=== PATIENT | female | born 1990 | race Two or more races ===

== ENCOUNTER 2016-09-16 00:16 | Observation (INO) | payer OTHER ==
[2016-06-20 04:30] VITALS: BP 130/70
[2016-09-16 00:59] LABS: BILIRUBIN,URINE NEGATIVE (NEG); GLUCOSE,URINE NEGATIVE (NEG); NITRITE,URINE NEGATIVE (NEG); PROTEIN,URINE NEGATIVE (NEG-TRACE)
[2016-09-16 01:03] LABS: BACTERIA,URINE MODERATE /HPF (0-FEW); RBC,URINE 0 /HPF (0-2)
[2016-09-16 01:04] LABS: SQUAMOUS EPITHELIAL CELL,UR MOD /LPF
== END 2016-09-16 04:50 | disposition home or self-care (01) ==
LOC: 3 SO LND 00:16
PROVIDERS: ADMIT Obstetrics & Gynecology; ATTEND Obstetrics & Gynecology
DX: O62.9 Abnormality of forces of labor, unspecified (principal); Z3A.37 37 weeks gestation of pregnancy
CPT/HCPCS: 81001; 87086; G0378; G0379

== ENCOUNTER 2021-09-14 01:27 | Emergency (ER) | payer OTHER ==
[~2021-09-14] VITALS: Ht 165.1 cm; Wt 130.5 kg
[~2021-09-14 01:27] MED LIST: DOCU-109 PO; IBUP-1060 PO; OXYC1TAB15 PO
[2021-09-14 01:40] VITALS: BP 160/85
--- NOTE | 2021-09-14 02:25 | ED.ADGEN ---
Past Medical History Past Medical History: High Cholesterol, Other Additional Past Medical Histor: PRE- DIABETES Past Surgical History: Smoking Status: Never Smoker Alcohol Use: None Drug Use: None General Adult EDM: Chief Complaint: ABDOMINAL PAIN IN HPI: HPI: Patient is a 31 year old G4, P3 about 10 weeks gestational age by LMP of 06-24-2021 female coming in for left lower abdominal pain. Patient states the pain is cramping but does not radiate. Started around 5 hours prior to arrival. Denies any vaginal bleeding or discharge. Patient states that she has had a Doppler done when but had difficult time finding a heart beats, has not had an ultrasound with this . Denies any problems with previous pregnancies. Denies any change in bowel movements. States she does have a history of previous ovarian cyst. Per chart review patient is a positive blood type Review of Systems: Review of Systems: All other systems within normal limits except for as noted in the HPI Current Medications: Current Medications Medications (Trade) Dose Ordered Sig/Sergo Start Time Stop Time Status Last Admin Dose Admin Acetaminophen (Tylenol) 1,000 mg 1X ONCE 09/14/21 02:15 09/14/21 02:21 DC 09/14/21 02:41 1,000 MG Allergies: Allergies: Allergies Coded Allergies Type Severity Reaction Last Updated Verified No Known Drug Allergies 06/03/15 No Physical Exam: PE: Constitutional: Well developed, well nourished, no acute distress, non-toxic appearance. [] HENT: Normocephalic, atraumatic, bilateral external ears normal, nose normal. [] Eyes: PERRLA, conjunctiva normal, no discharge. [] Neck: No rigidity, supple, no stridor. [] Cardiovascular: Regular rate and rhythm, brisk cap refill [] Lungs & Thorax: Non labored symmetric respirations, no tachypnea or respiratory distress [] Abdomen: Soft, nondistended. Skin: Warm, dry, no erythema, no rash. [] Back: Unremarkable Extremities: No deformities, range of motion grossly intact, no lower extremity edema [] Neurologic: Alert and oriented X 3, no focal deficits noted. [] Psychologic: Affect normal, judgement normal, mood normal. [] Current Patient Data: Labs: Laboratory Tests Test 09/14/21 01:42 09/14/21 01:43 09/14/21 02:40 Urine Collection Type Unknown Urine Color Yellow Urine Clarity Clear Urine pH 6.0 (<5.0-8.0) Urine Specific Faison 1.020 (1.000-1.030) Urine Protein 100 mg/dL (NEG-TRACE) Urine Glucose (UA) Negative mg/dL (NEG) Urine Ketones (Stick) Negative mg/dL (NEG) Urine Blood Moderate (NEG) Urine Nitrite Positive (NEG) Urine Bilirubin Negative (NEG) Urine Urobilinogen Dipstick 0.2 mg/dL (0.2 mg/dL) Urine Leukocyte Esterase Moderate (NEG) Urine RBC 20-40 /HPF (0-2) Urine WBC Tntc /HPF (0-4) Urine Squamous Epithelial Cells Mod /LPF Urine Bacteria Many /HPF (0-FEW) Urine Mucus Mod /LPF POC Urine HCG, Qualitative Hcg positive (Negative) White Blood Count 10.8 x10^3/uL (4.0-11.0) Red Blood Count 3.77 x10^6/uL (3.50-5.40) Hemoglobin 12.3 g/dL (12.0-15.5) Hematocrit 34.7 % (36.0-47.0) L Mean Corpuscular Volume 92 fL (79-100) Mean Corpuscular Hemoglobin 33 pg (25-35) Mean Corpuscular Hemoglobin Concent 35 g/dL (31-37) Red Cell Distribution Width 13.4 % (11.5-14.5) Platelet Count 318 x10^3/uL (140-400) Neutrophils (%) (Auto) 70 % (31-73) Lymphocytes (%) (Auto) 22 % (24-48) L Monocytes (%) (Auto) 7 % (0-9) Eosinophils (%) (Auto) 1 % (0-3) Basophils (%) (Auto) 0 % (0-3) Neutrophils # (Auto) 7.5 x10^3/uL (1.8-7.7) Lymphocytes # (Auto) 2.4 x10^3/uL (1.0-4.8) Monocytes # (Auto) 0.7 x10^3/uL (0.0-1.1) Eosinophils # (Auto) 0.1 x10^3/uL (0.0-0.7) Basophils # (Auto) 0.0 x10^3/uL (0.0-0.2) Maternal Serum HCG Beta Subunit 24942 mIU/mL (0-5) H Sodium Level 134 mmol/L (136-145) L Potassium Level 3.3 mmol/L (3.5-5.1) L Chloride Level 102 mmol/L (98-107) Carbon Dioxide Level 26 mmol/L (21-32) Anion Gap 6 (6-14) Blood Urea Nitrogen 8 mg/dL (7-20) Creatinine 0.7 mg/dL (0.6-1.0) Estimated GFR (Cockcroft-Gault) 96.4 BUN/Creatinine Ratio 11 (6-20) Glucose Level 108 mg/dL (70-99) H Calcium Level 8.6 mg/dL (8.5-10.1) Total Bilirubin 0.3 mg/dL (0.2-1.0) Aspartate Amino Transferase (AST) 14 U/L (15-37) L Alanine Aminotransferase (ALT) 22 U/L (14-59) Alkaline Phosphatase 75 U/L (46-116) Total Protein 7.7 g/dL (6.4-8.2) Albumin 3.0 g/dL (3.4-5.0) L Albumin/Globulin Ratio 0.6 (1.0-1.7) L Laboratory Tests 09/14/21 02:40 Laboratory Tests 09/14/21 02:40 Microbiology 09/14/21 Wet Prep - Final, Complete Vital Signs: Vital Signs Date Time Temp Pulse Resp B/P (MAP) Pulse Ox O2 Delivery O2 Flow Rate FiO2 09/14/21 01:40 98.3 56 16 160/85 (110) 100 Room Air 98.3 EKG: EKG: [] Heart Score: C/O Chest Pain: No Risk Factors: Risk Factors: DM, Current or recent (<one month) smoker, HTN, HLP, family history of CAD, obesity. Risk Scores: Score 0 - 3: 2.5% MACE over next 6 weeks - Discharge Home Score 4 - 6: 20.3% MACE over next 6 weeks - Admit for Clinical Observation Score 7 - 10: 72.7% MACE over next 6 weeks - Early Invasive Strategies Radiology/Procedures: Radiology/Procedures: RUN DATE: 09/14/21 [facility] *LIVE* PAGE 1 RUN TIME: 304 Specimen Inquiry PATIENT: MARIANGEL FRANKEL ACCT: [id number] LOC: [facility] U: [id number] AGE/SX: 31/F ROOM: RE09/14/[address]: FRANSISCO GLEASON MD : 1990 BED: DIS: STATUS: REG [place] TLOC: SPEC #: [id number] RHODA: 09/14/21 STATUS: COMP REQ #: [id number] RECD: 09/14/[address]: FRANSISCO GLEASON MD SOURCE: VAGINAL ENTR: 09/14/21 SUZY HENRIQUEZ[facility]: W[facility] PREP COMMENTS: Has specimen been collected/obtained? Y Procedure Result WET PREP Final YEAST NONE SEEN TRICHOMONAS NONE SEEN CLUE CELLS NONE SEEN SQUAMOUS EPS MANY [] RUN DATE: 09/14/21 [facility] *LIVE* PAGE 1 RUN TIME: 0305 Specimen Inquiry PATIENT: JOSE M FRANKELSOL ACCT: [id number] LOC: [place] U: [id number] AGE/SX: 31/F ROOM: RE09/14/[address]: FRANSISCO GLEASON MD: 1990 BED: DIS: STATUS: REG ER TLOC: SPEC #: [id number] RHODA: 09/14/21 STATUS: COMP REQ #: [id number] RECD: 09/14/21 [facility] DR: FRANSISCO GLEASON MD SOURCE: VAGINAL ENTR: 09/14/[address]: JULISSA GEORGES SPDESC: ORDERED: WET PREP COMMENTS: Has specimen been collected/obtained? Y -- Procedure Result WET PREP Final YEAST NONE SEEN TRICHOMONAS NONE SEEN CLUE CELLS NONE SEEN SQUAMOUS EPS MANY Course & Med Decision Making: Course & Med Decision Making Pertinent Labs and Imaging studies reviewed. (See chart for details) [] Dragon Disclaimer: Dragon Disclaimer: This electronic medical record was generated, in whole or in part, using a voice recognition dictation system. Departure Departure Impression: Primary Impression: Urinary tract infection Disposition: HOME / SELF CARE / HOMELESS Condition: STABLE Referrals: NO PCP (PCP) Patient Instructions: Urinary Tract Infection Scripts Cephalexin (CEPHALEXIN) 500 Mg Tablet 1 TAB PO BID for antibiotic for 5 Days, #10 TAB Prov: FRANSISCO GLEASON MD 09/14/21 FRANSISCO GLEASON MD Sep 14, 2021 02:25
[2021-09-14 02:28] LABS: BILIRUBIN,URINE NEGATIVE (NEG); CLARITY,URINE CLEAR; COLOR,URINE YELLOW; NITRITE,URINE POSITIVE (NEG); PROTEIN,URINE 100 mg/dL (NEG-TRACE); UROBILINOGEN,URINE 0.2 mg/dL (0.2 mg/dL)
[2021-09-14 02:33] LABS: BACTERIA,URINE MANY /HPF (0-FEW); RBC,URINE 20-40 /HPF (0-2); WBC,URINE TNTC /HPF (0-4)
[2021-09-14] MEDS: ACETAMINOPHEN 500 MG TABLET PO ONE (02:41)
[2021-09-14 02:47] LABS: BASO % 0 % (0-3); EOS # 0.1 x10^3/uL (0.0-0.7); EOS % 1 % (0-3); HEMATOCRIT 34.7 % (36.0-47.0); HEMOGLOBIN 12.3 g/dL (12.0-15.5); LYMPH # 2.4 x10^3/uL (1.0-4.8); LYMPH % 22 % (24-48); MEAN CORPUSCULAR HEMOGLOBIN 33 pg (25-35); MEAN CORPUSCULAR HGB CONC 35 g/dL (31-37); MEAN CORPUSCULAR VOLUME 92 fL (79-100); MONO # 0.7 x10^3/uL (0.0-1.1); MONO % 7 % (0-9); NEUT # 7.5 x10^3/uL (1.8-7.7); NEUT % 70 % (31-73); PLATELET COUNT 318 x10^3/uL (140-400); RED BLOOD COUNT 3.77 x10^6/uL (3.50-5.40); RED CELL DISTRIBUTION WIDTH 13.4 % (11.5-14.5); WHITE BLOOD COUNT 10.8 x10^3/uL (4.0-11.0)
[2021-09-14 02:59] LABS: CALCIUM 8.6 mg/dL (8.5-10.1); CREATININE 0.7 mg/dL (0.6-1.0); GFR 96.4; POTASSIUM 3.3 mmol/L (3.5-5.1)
[2021-09-14 03:05] LABS: ALBUMIN/GLOBULIN RATIO 0.6 (1.0-1.7); TOTAL BILIRUBIN 0.3 mg/dL (0.2-1.0); TOTAL PROTEIN 7.7 g/dL (6.4-8.2)
--- NOTE | 2021-09-14 04:03 | RAD ---
US OB <14 WKS +TV History: Reason: LLQ pain, 10 wga / Spl. Instructions: / History: Comparison: None. Technique: Grayscale and color Doppler imaging of the pelvis was performed using transvaginally techn [employer]. Findings: The uterus measures 12 x 7.1 x 5.7 cm. Single intrauterine gestational sac with regular appearance. Yolk sac is not identified. pole i s identified with crown-rump length 3.99 cm. Estimated gestational age by ultrasound 10 weeks 6 days. heart rate 175 bpm. No perigestational fluid collections. Estimated date of delivery April 06, 2022 Bilateral maternal ovaries not well seen IMPRESSION: 1. Single intrauterine with gestational age 10 weeks 6 days and heart rate 175 bpm. Recommend routine anatomic screening at 18-22 weeks. Electronically signed by: Vicente Umana DO (09/14/2021 4:01 AM) [email or web address]
[2021-09-14] MEDS ORDERED: CEPH500T PO (04:25)
[2021-09-14] MEDS: CEPHALEXIN 250 MG CAPSULE. PO STA (04:26)
[2021-09-15 19:25] LABS: GC PROBE Negative (Negative)
== END 2021-09-14 04:53 | disposition home or self-care (01) ==
LOC: ER 01:27
DX: O23.41 Unspecified infection of urinary tract in pregnancy, first trimester (principal); N39.0 Urinary tract infection, site not specified; E78.00 Pure hypercholesterolemia, unspecified; Z3A.10 10 weeks gestation of pregnancy
CPT/HCPCS: 76801; 76817; 80053; 81001; 81025; 84702; 85025; 87077; 87086; 87186; 87491; 87591; 99284; Q0111

== ENCOUNTER 2021-10-21 19:35 | Emergency (ER) | payer OTHER ==
[~2021-10-21] VITALS: Ht 167.6 cm; Wt 128.0 kg
[~2021-10-21 19:35] MED LIST changes: +CEPH500T PO
[2021-10-21 21:38] LABS: BILIRUBIN,URINE NEGATIVE (NEG); CLARITY,URINE CLOUDY; COLOR,URINE YELLOW; NITRITE,URINE NEGATIVE (NEG); PROTEIN,URINE 100 mg/dL (NEG-TRACE); UROBILINOGEN,URINE 0.2 mg/dL (0.2 mg/dL)
--- NOTE | 2021-10-21 21:39 | PHYS DOC ---
Past Medical History Past Medical History: High Cholesterol, Other Additional Past Medical Histor: PRE- DIABETES Past Surgical History: Smoking Status: Never Smoker Alcohol Use: None Drug Use: None General Adult EDM: Chief Complaint: ABDOMINAL PAIN IN HPI: HPI: Patient is a 31 year old -0-0-3 female who is approximately 17 weeks by LMP (06/24/2021) who presents with lower abdominal cramping. States that it started approximately 3 PM today. Originates in the midline just above the pelvis and radiates up towards the umbilicus. Does not come in waves. Does not feel similar to contractions. No associated vaginal bleeding or disch arge. She has not had any fevers or chills. No upper abdominal pain. No nausea or vomiting. Has been having normal bowel movements, approximately 3/day. No blood in the stool. All 3 previous pregnancies have been full-term C-sections. Denies history of GDM, gestational hypertension, or preeclampsia. States that she had similar cramping earlier in that was associated with a UTI, but denies any dysuria, frequency, urgency. Chart review shows an E. coli UTI in September. Chart review states that she is Rh+, but I cannot verify the source of this information. The patient does not know her blood type. Review of Systems: Review of Systems: Constitutional: Denies fever or chills. [] Eyes: Denies change in visual acuity. [] HENT: Denies nasal congestion or sore throat. [] Respiratory: Denies cough or shortness of breath. [] Cardiovascular: Denies chest pain or edema. [] GI: Reports abdominal cramping. Denies nausea, vomiting, bloody stools or diarrhea. [] : Denies dysuria. [] Musculoskeletal: Denies back pain or joint pain. [] Integument: Denies rash. [] Neurologic: Denies headache, focal weakness or sensory changes. [] Psychiatric: Denies depression or anxiety. [] Heart Score: C/O Chest Pain: No Allergies: Allergies: Allergies Coded Allergies Type Severity Reaction Last Updated Verified No Known Drug Allergies 06/03/15 No Physical Exam: PE: Constitutional: Well developed, well nourished, no acute distress, non-toxic appearance. [] HENT: Normocephalic, atraumatic Neck: Normal range of motion, no tenderness, supple, no stridor. [] Cardiovascular:Heart rate regular rhythm, no murmur [] Lungs & Thorax: Bilateral breath sounds clear to auscultation [] Abdomen: Gravid uterus, diffuse mild tenderness to palpation in the lower half of the abdomen. Skin: Warm, dry, no erythema, no rash. [] Back: No tenderness, no CVA tenderness. [] Extremities: No tenderness, no cyanosis, no clubbing, ROM intact, no edema. [] Neurologic: Alert and oriented X 3, normal motor function, normal sensory function, no focal deficits noted. [] Psychologic: Affect normal, judgement normal, mood normal. [] Current Patient Data: Labs: Laboratory Tests Test 10/21/21 21:13 POC Urine HCG, Qualitative Hcg positive (Negative) Vital Signs: Vital Signs Date Time Temp Pulse Resp B/P (MAP) Pulse Ox O2 Delivery O2 Flow Rate FiO2 10/21/21 20:20 98.3 60 18 147/74 (98) 99 Room Air 98.3 EKG: EKG: [] Radiology/Procedures: Radiology/Procedures: [] Impression: [facility] [address] [place] [address] IMAGING REPORT Signed PATIENT: DEANDRE FRANKELOUNT: [id number] : 1990 LOCATION: ER AGE: 31 SEX: F EXAM STATUS: REG ER ORD. PHYSICIAN: ZEE DELANEY MD REASON: lower abd pain, 17w6d PROCEDURE: OB LIMITED EXAM: Ultrasound US OB LIMITED 10/21/2021 9:34 PM INDICATION: Lower abdominal pain, 17 weeks 6 days . COMPARISON: OB ultrasound 09/14/2021 TECHNIQUE: Limited OB ultrasound per second trimester protocol FINDINGS: Exam is limited due to body habitus. There is a single living intrauterine gestation in variable position. heart rate is [address]acenta is posterior and low lying. COLLEEN is subjectively normal. biometry: Biparietal diameter: 3.36 cm, 16 weeks 3 days Head circumference: 12.98 cm, 16 weeks 4 days Abdominal circumference: 10.77 cm, 16 weeks 5 days Femur length: 2.25 cm, 16 weeks 5 days HC/AC ratio: 1.12 Estimated gestational age by ultrasound: 16 weeks 4 days. Estimated weight: 166 g. Sonographic EDC 04/03/2022. IMPRESSION: 1. Single living intrauterine with gestational age by ultrasound 16 weeks 4 days. Sonographic EDC 04/03/2022. 2. Low-lying placenta. Recommend attention on follow-up ultrasound. Electronically signed by: Nereida Tellez MD (10/21/2021 11:20 PM) [id number] DICTATED and SIGNED BY: NEREIDA TELLEZ MD DATE: 10/21/21 [id number] Course & Med Decision Making: Course & Med Decision Making Pertinent Labs and Imaging studies reviewed. (See chart for details) Patient 31-year-old female G4, P3 at approximately 17 weeks gestational age who presents with lower abdominal cramping. No bleeding or vaginal discharge noted. On arrival is afebrile, heart rate 60s, BP borderline hypertensive at 140/74. Mild tenderness on examination diffusely in the lower half of the abdomen. Doubt upper GI/biliary source of discomfort. No fever/chills, or unilateral pain to suggest appendicitis. More concerned this is related to and she also reports similar symptoms with a UTI earlier in . Will obtain a OB ultrasound as well as CBC, CMP, UA. 2139 BP now 120/62 without intervention. US reassuring. Does show low lying placenta. Patient advised of need for f/u. UA shows evidence of infection. No evidence of pyelonephritis by vitals or history. Previous infection was susceptible to keflex. Will dc on repeat course. [id number] Disclaimer: Hilton Disclaimer: This electronic medical record was generated, in whole or in part, using a voice recognition dictation system. Departure Departure Impression: Primary Impression: Urinary tract infection Disposition: HOME / SELF CARE / HOMELESS Condition: STABLE Referrals: FRANKO MUKHERJEE MD (PCP) MARV UMANA MD If you need a new OB you can call the office of Dr. Umana to schedule an appointment. Patient Instructions: Urinary Tract Infection Additional Instructions: You have a urinary tract infection. You will need treatment with an antibiotic. Your ultrasound was reassuring. It did show that your placenta was slightly low in the uterus, which will need to be followed closely throughout your , but this does not explain your pain today. Scripts Cephalexin (KEFLEX) 500 Mg Capsule 1 CAP PO QID for 10 Days, #40 CAP 0 Refills Prov: ZEE DELANEY MD 10/21/21 ZEE DELANEY MD Oct 21, 2021 21:39
[2021-10-21 21:59] LABS: BACTERIA,URINE MANY /HPF (0-FEW); WBC,URINE TNTC /HPF (0-4)
--- NOTE | 2021-10-21 23:23 | RAD ---
EXAM: Ultrasound US OB LIMITED 10/21/2021 9:34 PM INDICATION: Lower abdominal pain, 17 weeks 6 days . COMPARISON: OB ultrasound 09/14/2021 TECHNIQUE: Limited OB ultrasound per second trimester protocol FINDINGS: Exam is limited due to body habitus. There is a single living intrauterine gestation in variable position. heart rate is [address] acenta is posterior and low lying. COLLEEN is subjectively normal. biometry: Biparietal diameter: 3.36 cm, 16 weeks 3 days Head circumference: 12.98 cm, 16 weeks 4 days Abdominal circumference: 10.77 cm, 16 weeks 5 days Femur length: 2.25 cm, 16 weeks 5 days HC/AC ratio: 1.12 Estimated gestational age by ultrasound: 16 weeks 4 days. Estimated weight: 166 g. Sonographic EDC 04/03/2022. IMPRESSION: 1. Single living intrauterine with gestational age by ultrasound 16 weeks 4 days. Sonograph ic EDC 04/03/2022. 2. Low-lying placenta. Recommend attention on follow-up ultrasound. Electronically signed by: Nereida Tellez MD (10/21/2021 11:20 PM) [id number]
[2021-10-21 23:29] LABS: BASO % 0 % (0-3); EOS # 0.1 x10^3/uL (0.0-0.7); EOS % 1 % (0-3); HEMATOCRIT 34.3 % (36.0-47.0); HEMOGLOBIN 11.6 g/dL (12.0-15.5); LYMPH # 2.4 x10^3/uL (1.0-4.8); LYMPH % 25 % (24-48); MEAN CORPUSCULAR HEMOGLOBIN 32 pg (25-35); MEAN CORPUSCULAR HGB CONC 34 g/dL (31-37); MEAN CORPUSCULAR VOLUME 94 fL (79-100); MONO # 0.7 x10^3/uL (0.0-1.1); MONO % 7 % (0-9); NEUT # 6.6 x10^3/uL (1.8-7.7); NEUT % 68 % (31-73); PLATELET COUNT 297 x10^3/uL (140-400); RED BLOOD COUNT 3.65 x10^6/uL (3.50-5.40); WHITE BLOOD COUNT 9.7 x10^3/uL (4.0-11.0)
[2021-10-21 23:38] LABS: CALCIUM 8.6 mg/dL (8.5-10.1); CREATININE 0.6 mg/dL (0.6-1.0); GFR 115.1; POTASSIUM 3.5 mmol/L (3.5-5.1)
[2021-10-21] MEDS ORDERED: CEPH500C PO (23:38)
[2021-10-21 23:44] LABS: ALBUMIN 2.7 g/dL (3.4-5.0); ALBUMIN/GLOBULIN RATIO 0.6 (1.0-1.7); TOTAL BILIRUBIN 0.3 mg/dL (0.2-1.0); TOTAL PROTEIN 7.2 g/dL (6.4-8.2)
[2021-10-22 01:19] VITALS: BP 122/68
== END 2021-10-22 01:19 | disposition home or self-care (01) ==
LOC: ER 19:35
DX: O23.42 Unspecified infection of urinary tract in pregnancy, second trimester (principal); N39.0 Urinary tract infection, site not specified; Z3A.17 17 weeks gestation of pregnancy; E78.00 Pure hypercholesterolemia, unspecified
CPT/HCPCS: 36415; 76815; 80053; 81001; 81025; 85025; 87077; 87086; 87186; 99285-25